=== PATIENT | female | born 1950 | race African-American/Black ===

== ENCOUNTER 2017-01-13 16:14 | Emergency (ER) | payer OTHER ==
[~2017-01-13] VITALS: Ht 154.9 cm; Wt 99.0 kg
[~2017-01-13 16:14] MED LIST: ALBU0.086 INH; ALBU8I INH; ALLO300T2 PO; ATEN-102 PO; BETH25TA PO; EZET10 PO; FOLI1TAB PO; GLIP5TAB8 PO; NIFE90TA PO; OMEP20TA39 PO; PRED20 PO; TORS1TAB12 PO; VITA20003 PO; ZITH250T PO
[2017-01-13 16:16] VITALS: BP 123/69; PULSE 97; RESP 18; TEMP 98.4; O2SAT 97
--- NOTE | 2017-01-13 16:24 | PD ---
HPI Chief Complaint: Edema Time Seen by Provider: 16:23 Travel History International Travel<30 days: No Contact w/Intl Traveler<30days: No Traveled to known affect area: No History of Present Illness HPI 66-year-old female came to the emergency room with history of bilateral pedal edema that has started 3 days ago. Patient wears an and clipped and had to take that off since the ankle was getting swollen and the jewelry was getting tight. Patient has history of heart disease and on torsemide. She says she has been compliant with her medications. No history of chest pain. She has some shortness of breath. Vital signs were otherwise stable. No history of long distance travel. No history of previous DVT or PE. PFSH Past Medical History Narrative Medical List of her past medical, surgical, social and family history is reviewed from the nursing note. Arthritis: Yes (HIP, HANDS & SPINE, KNEES ) Asthma: No Autoimmune Disease: Yes (SARCODOSIS) Anxiety: No Depression: Yes Heart Rhythm Problems: Yes Cancer: Yes (CERVICAL) Cardiovascular Problems: Yes High Cholesterol: No Chemotherapy: No Chest Pain: No Congestive Heart Failure: Yes COPD: No Cerebrovascular Accident: No Diabetes: Yes Diminished Hearing: No Endocrine: Yes Gastrointestinal Disorders: Yes (PANCREATITIS) GERD: Yes Genitourinary: Yes Headaches: Yes Hepatitis: Yes Hypertension: Yes Immune Disorder: No Implanted Vascular Access Dvce: No Kidney Stones: Yes Musculoskeletal: Yes Neurologic: No Psychiatric: Yes Reproductive: Yes (HYSTERERCTOMY 1972) Respiratory: Yes Immunizations Current: Yes Migraines: Yes Radiation Therapy: No Renal Failure: No Sickle Cell Disease: No Sleep Apnea: No Thyroid Disease: No Ulcer: Yes Menopausal: Yes Tubal Ligation: Yes Past Surgical History Abdominal Surgery: Yes (APPY; CHOLECY ) AICD: No Appendectomy: Yes (AGE 16) Arteriovenous Shunt: No Cardiac Surgery: No Cholecystectomy: Yes (1988) Ear Surgery: No Eye Surgery: No Genitourinary Surgery: No Gynecologic Surgery: Yes (HYSTERECTOMY (PARTIAL) ) Hysterectomy: Yes Insulin Pump: No Joint Replacement: Yes (bilateral hips) Oral Surgery: No Pacemaker: No Thoracic Surgery: No Tonsillectomy: Yes (AGE 20) Other Surgery: Yes (BILATERAL BENIGN CYSTS REMOVED BREASTS) Social History Alcohol Use: No (NONE SINCE 2003) Tobacco Use: Yes (1/2 PPD/STARTED AGE 22) Substance Use: No Allergies-Medications (Allergen,Severity, Reaction): Coded Allergies: Sulfa (Sulfonamide Antibiotics) (Unverified Allergy, Severe, SWELLING, 01/13/17) CAN'T BREATHE aspirin (Unverified Allergy, Severe, "FAST HEART BEAT", 01/13/17) RASH, KIDNEY PROBLEMS codeine (Unverified Allergy, Severe, SWELLING, 01/13/17) CAN'T BREATHE penicillin G (Unverified Allergy, Severe, SWELLING, 01/13/17) CAN'T BREATHE Comments List of her allergies reviewed from the nursing note. Reported Meds & Prescriptions Reported Meds & Active Scripts Active Proventil Ud 0.083% (2.5 Mg/3 Ml) (Albuterol Sulfate) 2.5 Mg/3 Ml Inha 2.5 Mg INH Q4 PRN Ventolin Hfa (Albuterol Sulfate) 8 Gm Aero 2 Puff INH Q6 PRN * SHAKE WELL BEFORE USE * Deltasone 20 Mg Tab (Prednisone) 20 Mg Tab 40 Mg PO DAILY Zithromax Z-Richard (Azithromycin) 250 Mg Tab 250 Mg PO DIRECTED 5 Days 500 MG (2 TABLETS) PO ON DAY 1, THEN 250 MG (1 TABLET) PO ON DAYS 2 TO 5. Reported Vitamin D (Cholecalciferol) 2,000 Unit Cap 1 Cap PO DAILY Hm Omeprazole (Omeprazole) 20 Mg Tab 20 Mg PO DAILY Zetia (Ezetimibe) 10 Mg Tab 10 Mg PO DAILY Bethanechol Chloride 25 Mg Tab 25 Mg PO TID Atenolol 50 Mg Tab 50 Mg PO DAILY Allopurinol 300 Mg Tab 150 Mg PO DAILY Nifediac cc (Nifedipine) 90 Mg Tab 90 Mg PO DAILY Glipizide 5 Mg Tab 5 Mg PO BIDAC Torsemide 20 Mg Tab 20 Mg PO BID Folate (Folic Acid) 1 Mg Tab 1 Mg PO DAILY Narrative Medication List of her home medications reviewed from the nursing note. Review of Systems Except as stated in HPI: all other systems reviewed are Neg Respiratory: Positive: Shortness of Breath Physical Exam Narrative GENERAL: Awake, alert, obese, no obvious distress SKIN: Focused skin assessment warm/dry. HEAD: Atraumatic. Normocephalic. EYES: Pupils equal and round. No scleral icterus. No injection or drainage. ENT: No nasal bleeding or discharge. Mucous membranes pink and moist. NECK: Trachea midline. No JVD. CARDIOVASCULAR: Regular rate and rhythm. No murmur appreciated. RESPIRATORY: No accessory muscle use. Clear to auscultation. Breath sounds equal bilaterally. GASTROINTESTINAL: Abdomen soft, non-tender, nondistended. Hepatic and splenic margins not palpable. MUSCULOSKELETAL: No obvious deformities. No clubbing. No cyanosis. Bilateral pedal edema NEUROLOGICAL: Awake and alert. No obvious cranial nerve deficits. Motor grossly within normal limits. Normal speech. PSYCHIATRIC: Appropriate mood and affect; insight and judgment normal. Data Data Last Documented VS Vital Signs Date Time Temp Pulse Resp B/P (MAP) Pulse Ox O2 Delivery O2 Flow Rate FiO2 01/13/17 18:58 111/68 (82) 01/13/17 17:39 82 18 96 01/13/17 17:39 Room Air 01/13/17 16:16 98.4 Orders Orders Electrocardiogram (01/13/17 16:35) Basic Metabolic Panel (Bmp) (01/13/17 16:35) B-Type Natriuretic Peptide (01/13/17 16:35) Complete Blood Count With Diff (01/13/17 16:35) Magnesium (Mg) (01/13/17 16:35) Prothrombin Time / Inr (Pt) (01/13/17 16:35) Troponin I (01/13/17 16:35) Chest, Single Ap (01/13/17 16:35) Ecg Monitoring (01/13/17 16:35) Bilateral Bp Monitoring (01/13/17 16:35) Iv Access Insert/Monitor (01/13/17 16:35) Oximetry (01/13/17 16:35) Oxygen Administration (01/13/17 16:35) Sodium Chloride 0.9% Flush (Ns Flush) (01/13/17 16:45) Drug Screen, Random Urine (01/13/17 16:35) Vascular Access Team Consult/P PRN (01/13/17 16:51) Vascular Poc Ultrasound (01/13/17 ) Ed Discharge Order (01/13/17 18:45) Labs Laboratory Tests Test 01/13/17 17:00 01/13/17 17:15 Urine Opiates Screen POS Urine Barbiturates Screen NEG Urine Amphetamines Screen NEG Urine Benzodiazepines Screen NEG Urine Cocaine Screen NEG Urine Cannabinoids Screen NEG White Blood Count 6.2 TH/MM3 Red Blood Count 3.70 MIL/MM3 Hemoglobin 12.5 GM/DL Hematocrit 37.0 % Mean Corpuscular Volume 100.1 FL Mean Corpuscular Hemoglobin 33.8 PG Mean Corpuscular Hemoglobin Concent 33.8 % Red Cell Distribution Width 15.4 % Platelet Count 216 TH/MM3 Mean Platelet Volume 9.3 FL Neutrophils (%) (Auto) 57.0 % Lymphocytes (%) (Auto) 29.7 % Monocytes (%) (Auto) 10.6 % Eosinophils (%) (Auto) 1.9 % Basophils (%) (Auto) 0.8 % Neutrophils # (Auto) 3.6 TH/MM3 Lymphocytes # (Auto) 1.9 TH/MM3 Monocytes # (Auto) 0.7 TH/MM3 Eosinophils # (Auto) 0.1 TH/MM3 Basophils # (Auto) 0.0 TH/MM3 CBC Comment DIFF FINAL Differential Comment Prothrombin Time 10.0 SEC Prothromb Time International Ratio 0.9 RATIO Blood Urea Nitrogen 43 MG/DL Creatinine 2.00 MG/DL Random Glucose 87 MG/DL Calcium Level 8.7 MG/DL Magnesium Level 2.5 MG/DL Sodium Level 141 MEQ/L Potassium Level 4.0 MEQ/L Chloride Level 105 MEQ/L Carbon Dioxide Level 27.0 MEQ/L Anion Gap 9 MEQ/L Estimat Glomerular Filtration Rate 30 ML/MIN Troponin I LESS THAN 0.02 NG/ML B-Type Natriuretic Peptide 104 PG/ML MDM Medical Decision Making Medical Screen Exam Complete: Yes Emergency Medical Condition: Yes Medical Record Reviewed: Yes Interpretation(s) Twelve-lead EKG was reviewed by me. Normal sinus rhythm, left axis deviation, anterior lateral T wave inversions. Heart rate of 92 bpm. Differential Diagnosis Fluid Overload, dependent edema Narrative Course 5:18 PM awaiting for the blood test results. 6:46 PM blood test results are back. Renal function has worsened from the past. But patient is also on torsemide. I'm comfortable discharging her home at this point. She needs to follow up with her primary care shellacker. Procedures EKG Prior to Arrival: No Diagnosis Primary Impression: Edema Qualified Codes: R60.9 - Edema, unspecified Additional Impression: Renal insufficiency Referrals: Primary Care Physician Additional Instructions: Please ask your primary care to refer you to a kidney doctor/shellacker. You should be on complete salt restricted diet. Return to the ER if the condition worsens or any other new concerns. Otherwise follow-up with your primary care in 1-2 days. Disposition: 01 DISCHARGE HOME Condition: Stable Elmo Culp MD Jan 13, 2017 16:24
[2017-01-13] MEDS ORDERED: SODIUM CHLORIDE 0.9% FLUSH 10 ML FLUSH IVF PRN (16:45)
[2017-01-13 17:39] VITALS: BP 113/62; PULSE 82; RESP 18; O2SAT 96
[2017-01-13 17:40] VITALS: BP_SYST 111; BP_SYST 113; BP_DIAS 62; BP_DIAS 68
--- NOTE | 2017-01-13 17:57 | RADRPT ---
EXAM DATE/TIME: 01/13/2017 17:40 [facility] COMPARISON: No previous studies available for comparison. INDICATIONS : Chest Pain MEDICAL HISTORY : Congestive heart failure. SURGICAL HISTORY : None. ENCOUNTER: Initial ACUITY: 1 day PAIN SCORE: 3/10 LOCATION: Bilateral chest FINDINGS: A single view of the chest demonstrates the lungs to be symmetrically aerated without evidence of mas s, infiltrate or effusion. The cardiomediastinal contours are unremarkable. Osseous structures are intact. CONCLUSION: No acute cardiopulmonary disease demonstrated. Carlos Alberto Cody MD on January 13, 2017 at 17:55 Board Certified Radiologist. This report was verified electronically.
[2017-01-13 18:04] LABS: AUTOMATED NEUTROPHIL # 3.6 TH/MM3 (1.8-7.7); BASOPHIL % 0.8 % (0.0-2.0); EOSINOPHIL # 0.1 TH/MM3 (0-0.4); EOSINOPHIL % 1.9 % (0.0-4.0); HEMO FLAGS DIFF FINAL; LYMPH % 29.7 % (9.0-44.0); LYMPHOCYTE # 1.9 TH/MM3 (1.0-4.8); MEAN CELL VOLUME 100.1 FL (80.0-100.0); MEAN CORPUSCULAR HEMOGLOBIN 33.8 PG (27.0-34.0); MEAN CORPUSCULAR HGB CONC 33.8 % (32.0-36.0); MONO % 10.6 % (0.0-8.0); PLATELET COUNT 216 TH/MM3 (150-450); RED CELL DISTRIBUTION WIDTH 15.4 % (11.6-17.2); WHITE BLOOD COUNT 6.2 TH/MM3 (4.0-11.0)
[2017-01-13 18:07] LABS: INTERNATIONAL NORMALIZED RATIO 0.9 RATIO
[2017-01-13 18:24] LABS: ANION GAP 9 MEQ/L (5-15); BLOOD UREA NITROGEN 43 MG/DL (7-18); CHLORIDE 105 MEQ/L (98-107); GLOMERULAR FILTRATION RATE 30 ML/MIN (>89); MAGNESIUM 2.5 MG/DL (1.5-2.5); SODIUM (NA) 141 MEQ/L (136-145)
[2017-01-13 18:58] VITALS: BP 111/68
--- NOTE | 2017-01-13 21:09 | EKG ---
Date Performed: 01/13/2017 Time Performed: 17:03:05 PTAGE: 66 years EKG: Sinus rhythm NONSPECIFIC T-WAVE ABNORMALITY BORDERLINE ECG PREVIOUS TRACING : 12/30/2013 22.42 No significant change from previous tracing noted. DOCTOR: Julio Tellez Interpretating Date/Time 01/13/2017 21:09:04
== END 2017-01-13 19:27 | disposition home or self-care (01) ==
LOC: NEPE 16:14
DX: R60.9 Edema, unspecified (principal); R07.9 Chest pain, unspecified; D86.9 Sarcoidosis, unspecified; I10 Essential (primary) hypertension; I50.9 Heart failure, unspecified; E11.9 Type 2 diabetes mellitus without complications; K85.90 Acute pancreatitis without necrosis or infection, unspecified; K21.9 Gastro-esophageal reflux disease without esophagitis; Z87.442 Personal history of urinary calculi
CPT/HCPCS: 71010; 80048; 80307; 83735; 83880; 84484; 85025; 85610; 93005; 99285

== ENCOUNTER 2017-04-19 10:15 | Emergency (ER) | payer OTHER ==
[~2017-04-19] VITALS: Ht 154.9 cm; Wt 91.0 kg
[2017-04-19 10:17] VITALS: BP 152/73; PULSE 94; RESP 20; TEMP 97.8; O2SAT 95
[2017-04-19] MEDS ORDERED: FOLI800T PO (11:03)
[2017-04-19] MEDS ORDERED: ALLO300T2 PO (11:03)
[2017-04-19] MEDS ORDERED: BIOTCAP PO (11:03)
[2017-04-19] MEDS ORDERED: SODI650T PO (11:03)
[2017-04-19] MEDS ORDERED: POTA10CA PO (11:03)
[2017-04-19] MEDS ORDERED: BUME2TAB PO (11:03)
[2017-04-19] MEDS ORDERED: OMEP20TA93 PO (11:03)
[2017-04-19] MEDS ORDERED: GLIP5TAB8 PO (11:03)
[2017-04-19] MEDS ORDERED: NIFE1TAB PO (11:03)
[2017-04-19] MEDS ORDERED: BETH25TA2 PO (11:03)
[2017-04-19] MEDS ORDERED: LOSA25TA PO (11:03)
[2017-04-19] MEDS ORDERED: ATEN50TA PO (11:03)
[2017-04-19] MEDS ORDERED: VITA1000 PO (11:03)
[2017-04-19] MEDS ORDERED: DULO1CAP2 PO (11:03)
[2017-04-19] MEDS ORDERED: GABA300C5 PO (11:03)
--- NOTE | 2017-04-19 11:32 | PD ---
HPI Chief Complaint: Abnormal Results Time Seen by Provider: 11:11 Travel History International Travel<30 days: No Contact w/Intl Traveler<30days: No Traveled to known affect area: No History of Present Illness HPI 66-year-old female patient with history of diabetes, hypertension, chronic kidney disease being followed by Dr. Gomez, had routine blood work done a few days ago and they had called her today stating that her potassium was elevated and that she needs to be evaluated in the ER. Patient states that she has been having several days of feeling sluggish, headaches, and nausea. She denies any vomiting, fevers, chest pains, shortness of breath, or other symptoms. Modifying Factors: None Associated Signs & Symptoms: Abnormal potassium on lab work Risk Factors: Chronic kidney disease PFSH Past Medical History Arthritis: Yes (HIP, HANDS & SPINE, KNEES ) Asthma: No Autoimmune Disease: Yes (SARCODOSIS) Anxiety: No Depression: Yes Heart Rhythm Problems: Yes Cancer: Yes (CERVICAL) Cardiovascular Problems: Yes High Cholesterol: No Chemotherapy: No Chest Pain: No Congestive Heart Failure: Yes COPD: No Cerebrovascular Accident: No Diabetes: Yes Patient Takes Glucophage: No Diminished Hearing: No Endocrine: Yes Gastrointestinal Disorders: Yes (PANCREATITIS) GERD: Yes Genitourinary: Yes Headaches: Yes Hepatitis: Yes Hypertension: Yes Immune Disorder: No Implanted Vascular Access Dvce: No Kidney Stones: Yes Musculoskeletal: Yes Neurologic: No Psychiatric: Yes Reproductive: Yes (HYSTERERCTOMY 1972) Respiratory: Yes Immunizations Current: Yes Migraines: Yes Radiation Therapy: No Renal Failure: No Sickle Cell Disease: No Sleep Apnea: No Thyroid Disease: No Ulcer: Yes Tetanus Vaccination: > 5 Years ?: Not Menopausal: Yes Tubal Ligation: Yes Past Surgical History Abdominal Surgery: Yes (APPY; CHOLECY ) AICD: No Appendectomy: Yes (AGE 16) Arteriovenous Shunt: No Cardiac Surgery: No Cholecystectomy: Yes (1988) Ear Surgery: No Eye Surgery: No Genitourinary Surgery: No Gynecologic Surgery: Yes (HYSTERECTOMY (PARTIAL) ) Hysterectomy: Yes Insulin Pump: No Joint Replacement: Yes (bilateral hips) Oral Surgery: No Pacemaker: No Thoracic Surgery: No Tonsillectomy: Yes (AGE 20) Other Surgery: Yes (BILATERAL BENIGN CYSTS REMOVED BREASTS) Social History Alcohol Use: No (NONE SINCE 2003) Tobacco Use: Yes (1/2 PPD/STARTED AGE 22) Substance Use: No Allergies-Medications (Allergen,Severity, Reaction): Coded Allergies: Sulfa (Sulfonamide Antibiotics) (Unverified Allergy, Severe, SWELLING, 04/19) CAN'T BREATHE aspirin (Unverified Allergy, Severe, "FAST HEART BEAT", 04/19/17) RASH, KIDNEY PROBLEMS codeine (Unverified Allergy, Severe, SWELLING, 04/19/17) CAN'T BREATHE penicillin G (Unverified Allergy, Severe, SWELLING, 04/19/17) CAN'T BREATHE Reported Meds & Prescriptions Reported Meds & Active Scripts Active Reported Nifedipine ER 24 HR (Nifedipine) 90 Mg Tab 90 Mg PO DAILY Losartan (Losartan Potassium) 25 Mg Tab 25 Mg PO DAILY Sodium Bicarbonate 650 Mg Tab 650 Mg PO BIDPC Biotin 5 Mg Cap 5 Mg PO Bumetanide 2 Mg Tab 2 Mg PO BID Bethanechol 25 Mg Tab 25 Mg PO Q8HR Atenolol 50 Mg Tab 50 Mg PO DAILY Potassium Chloride ER (Potassium Chloride) 10 Meq Cap 10 Meq PO BID Allopurinol 300 Mg Tab 300 Mg PO DAILY Duloxetine DR (Duloxetine HCl) 30 Mg Capdr 30 Mg PO DAILY Omeprazole 20 Mg Tab 20 Mg PO DAILY Folic Acid 0.8 Mg Tab 1,000 Mcg PO DAILY Glipizide 5 Mg Tab 5 Mg PO BIDAC Take 30 minutes before a meal Gabapentin 300 Mg Cap 300 Mg PO TID Vitamin D-1000 (Cholecalciferol) 1,000 Unit Tab 2,000 Units PO DAILY Review of Systems Except as stated in HPI: all other systems reviewed are Neg Physical Exam Narrative GENERAL: Well-developed elderly -[place] female patient currently in no acute distress. Awake and oriented 3. SKIN: Focused skin assessment warm/dry. HEAD: Atraumatic. Normocephalic. EYES: Pupils equal and round. No scleral icterus. No injection or drainage. ENT: No nasal bleeding or discharge. Mucous membranes pink and moist. NECK: Trachea midline. No JVD. CARDIOVASCULAR: Regular rate and rhythm. No murmur appreciated. RESPIRATORY: No accessory muscle use. Clear to auscultation. Breath sounds equal bilaterally. GASTROINTESTINAL: Abdomen soft, non-tender, nondistended. Hepatic and splenic margins not palpable. MUSCULOSKELETAL: No obvious deformities. No clubbing. No cyanosis. No edema. NEUROLOGICAL: Awake and alert. No obvious cranial nerve deficits. Motor grossly within normal limits. Normal speech. PSYCHIATRIC: Appropriate mood and affect; insight and judgment normal. Data Data Last Documented VS Vital Signs Date Time Temp Pulse Resp B/P (MAP) Pulse Ox O2 Delivery O2 Flow Rate FiO2 04/19/17 10:17 97.8 94 20 152/73 (99) 95 Orders Orders Electrocardiogram (04/19/17 10:48) Complete Blood Count With Diff (04/19/17 10:48) Basic Metabolic Panel (Bmp) (04/19/17 10:48) Magnesium (Mg) (04/19/17 10:48) Ed Discharge Order (04/19/17 12:39) Labs Laboratory Tests Test 04/19/17 11:30 White Blood Count 6.9 TH/MM3 Red Blood Count 3.97 MIL/MM3 Hemoglobin 13.5 GM/DL Hematocrit 39.2 % Mean Corpuscular Volume 98.9 FL Mean Corpuscular Hemoglobin 34.1 PG Mean Corpuscular Hemoglobin Concent 34.5 % Red Cell Distribution Width 15.5 % Platelet Count 220 TH/MM3 Mean Platelet Volume 8.9 FL Neutrophils (%) (Auto) 60.8 % Lymphocytes (%) (Auto) 28.3 % Monocytes (%) (Auto) 8.3 % Eosinophils (%) (Auto) 1.9 % Basophils (%) (Auto) 0.7 % Neutrophils # (Auto) 4.2 TH/MM3 Lymphocytes # (Auto) 1.9 TH/MM3 Monocytes # (Auto) 0.6 TH/MM3 Eosinophils # (Auto) 0.1 TH/MM3 Basophils # (Auto) 0.0 TH/MM3 CBC Comment DIFF FINAL Differential Comment Blood Urea Nitrogen 36 MG/DL Creatinine 1.46 MG/DL Random Glucose 83 MG/DL Calcium Level 8.8 MG/DL Magnesium Level 2.0 MG/DL Sodium Level 139 MEQ/L Potassium Level 4.5 MEQ/L Chloride Level 106 MEQ/L Carbon Dioxide Level 26.0 MEQ/L Anion Gap 7 MEQ/L Estimat Glomerular Filtration Rate 43 ML/MIN MDM Medical Decision Making Medical Screen Exam Complete: Yes Emergency Medical Condition: Yes Medical Record Reviewed: Yes Interpretation(s) EKG shows NSR, no ST elevation or depression, and no arrhythmias. No significant T-wave inversions. Laboratory Tests Test 04/19/17 11:30 Red Blood Count 3.97 MIL/MM3 (4.00-5.30) Mean Corpuscular Hemoglobin 34.1 PG (27.0-34.0) Monocytes (%) (Auto) 8.3 % (0.0-8.0) Blood Urea Nitrogen 36 MG/DL (7-18) Creatinine 1.46 MG/DL (0.50-1.00) Estimat Glomerular Filtration Rate 43 ML/MIN (>89) Differential Diagnosis Abnormal potassium: Hemolyzed cyst versus chronic kidney disease versus metabolic issues Narrative Course Lab work shows a normal potassium in the ER. At this point, vital signs are stable. There are no signs of dysrhythmias. My plan would be to release her with follow-up to renal doctor. Return for any new issues as needed. The plan has been discussed with her and she states understanding. Diagnosis Primary Impression: Abnormal laboratory test Disposition: 01 DISCHARGE HOME Condition: Stable Kurtis Lynn MD Apr 19, 2017 11:32
[2017-04-19 11:46] LABS: AUTOMATED NEUTROPHIL # 4.2 TH/MM3 (1.8-7.7); BASOPHIL % 0.7 % (0.0-2.0); EOSINOPHIL # 0.1 TH/MM3 (0-0.4); EOSINOPHIL % 1.9 % (0.0-4.0); HEMATOCRIT 39.2 % (35.0-46.0); HEMOGLOBIN 13.5 GM/DL (11.6-15.3); LYMPH % 28.3 % (9.0-44.0); LYMPHOCYTE # 1.9 TH/MM3 (1.0-4.8); MEAN CELL VOLUME 98.9 FL (80.0-100.0); MEAN CORPUSCULAR HEMOGLOBIN 34.1 PG (27.0-34.0); MEAN CORPUSCULAR HGB CONC 34.5 % (32.0-36.0); MEAN PLATELET VOLUME 8.9 FL (7.0-11.0); MONO % 8.3 % (0.0-8.0); MONOCYTE # 0.6 TH/MM3 (0-0.9); NEUT % 60.8 % (16.0-70.0); PLATELET COUNT 220 TH/MM3 (150-450); RED BLOOD COUNT 3.97 MIL/MM3 (4.00-5.30); RED CELL DISTRIBUTION WIDTH 15.5 % (11.6-17.2); WHITE BLOOD COUNT 6.9 TH/MM3 (4.0-11.0)
[2017-04-19 12:02] LABS: CALCIUM 8.8 MG/DL (8.5-10.1); CREATININE 1.46 MG/DL (0.50-1.00)
[2017-04-19 12:52] VITALS: BP 131/70; PULSE 79; RESP 17; O2SAT 97
--- NOTE | 2017-04-21 00:33 | EKG ---
Date Performed: 04/19/2017 Time Performed: 11:08:54 PTAGE: 66 years EKG: Sinus rhythm MODERATE VOLTAGE CRITERIA FOR LVH, CONSIDER NORMAL VARIANT NONSPECIFIC T-WAVE ABNORMALITY BORDERLINE ECG PREVIOUS TRACING : 01/13/2017 17.03 Compared to prior tracing, now with criteria for LVH DOCTOR: Dre Jauregui Interpretating Date/Time 04/21/2017 00:31:59
== END 2017-04-19 13:06 | disposition home or self-care (01) ==
LOC: NEPE 10:15
DX: E87.6 Hypokalemia (principal); I13.0 Hypertensive heart and chronic kidney disease with heart failure and stage 1 through stage 4 chronic kidney disease, or unspecified chronic kidney disease; I50.9 Heart failure, unspecified; N18.9 Chronic kidney disease, unspecified; E11.22 Type 2 diabetes mellitus with diabetic chronic kidney disease; R94.31 Abnormal electrocardiogram [ECG] [EKG]; F32.9 Major depressive disorder, single episode, unspecified; K21.9 Gastro-esophageal reflux disease without esophagitis; F17.200 Nicotine dependence, unspecified, uncomplicated
CPT/HCPCS: 80048; 83735; 85025; 93005; 99284

== ENCOUNTER 2017-05-12 13:20 | Emergency (ER) | payer OTHER ==
[~2017-05-12] VITALS: Ht 154.9 cm; Wt 98.0 kg
[~2017-05-12 13:20] MED LIST changes: -ALBU0.086 INH; -ALBU8I INH; -ATEN-102 PO; +ATEN50TA PO; -BETH25TA PO; +BETH25TA2 PO; +BIOTCAP PO; +BUME2TAB PO; +DULO1CAP2 PO; -EZET10 PO; -FOLI1TAB PO; +FOLI800T PO; +GABA300C5 PO; +LOSA25TA PO; +NIFE1TAB PO; -NIFE90TA PO; -OMEP20TA39 PO; +OMEP20TA93 PO; +POTA10CA PO; -PRED20 PO; +SODI650T PO; -TORS1TAB12 PO; +VITA1000 PO; -VITA20003 PO; -ZITH250T PO
[2017-05-12 13:40] VITALS: BP 126/67; PULSE 86; RESP 18; TEMP 98.6; O2SAT 97
--- NOTE | 2017-05-12 13:59 | PD ---
HPI Chief Complaint: Hip Injury Time Seen by Provider: 13:58 Travel History International Travel<30 days: No Contact w/Intl Traveler<30days: No Traveled to known affect area: No History of Present Illness HPI 67-year-old female came to the emergency room with history of a fall 2 days ago. Patient says since then her right hip has been hurting. She is able to walk but it hurts and the pain is progressively getting worse. She has pain pills at home and she has taken them but does not seem to help. Finally the patient decided to come to the emergency room. She has had hip replacement surgery in the past. She's never had issues with this happened in the past. Patient says the fall was due to tripping on her dog. Vital signs are stable. [facility] Past Medical History Narrative Medical List of her past medical, surgical, social and family history is reviewed from the nursing note. Arthritis: Yes (HIP, HANDS & SPINE, KNEES ) Asthma: No Autoimmune Disease: Yes (SARCODOSIS) Anxiety: No Depression: Yes Heart Rhythm Problems: Yes Cancer: Yes (CERVICAL) Cardiovascular Problems: Yes High Cholesterol: No Chemotherapy: No Chest Pain: No Congestive Heart Failure: Yes COPD: No Cerebrovascular Accident: No Diabetes: Yes (TYPE 2) Diminished Hearing: No Endocrine: Yes Gastrointestinal Disorders: Yes (PANCREATITIS) GERD: Yes Genitourinary: Yes Headaches: Yes Hepatitis: Yes Hypertension: Yes Immune Disorder: No Implanted Vascular Access Dvce: No Kidney Stones: Yes Musculoskeletal: Yes Neurologic: No Psychiatric: Yes Reproductive: Yes (HYSTERERCTOMY 1972) Respiratory: Yes Immunizations Current: Yes Migraines: Yes Radiation Therapy: No Renal Failure: No Sickle Cell Disease: No Sleep Apnea: No Thyroid Disease: No Ulcer: Yes ?: Not Menopausal: Yes Tubal Ligation: Yes Past Surgical History Abdominal Surgery: Yes (APPY; CHOLECY ) AICD: No Appendectomy: Yes (AGE 16) Arteriovenous Shunt: No Cardiac Surgery: No Cholecystectomy: Yes (1988) Ear Surgery: No Eye Surgery: No Genitourinary Surgery: No Gynecologic Surgery: Yes (HYSTERECTOMY (PARTIAL) ) Hysterectomy: Yes Insulin Pump: No Joint Replacement: Yes (bilateral hips) Oral Surgery: No Pacemaker: No Thoracic Surgery: No Tonsillectomy: Yes (AGE 20) Other Surgery: Yes (BILATERAL BENIGN CYSTS REMOVED BREASTS) Social History Alcohol Use: No (NONE SINCE 2003) Tobacco Use: Yes (1/2 PPD/STARTED AGE 22) Substance Use: No Allergies-Medications (Allergen,Severity, Reaction): Coded Allergies: Sulfa (Sulfonamide Antibiotics) (Unverified Allergy, Severe, SWELLING, 05/12) CAN'T BREATHE aspirin (Unverified Allergy, Severe, "FAST HEART BEAT", 05/12/17) RASH, KIDNEY PROBLEMS codeine (Unverified Allergy, Severe, SWELLING, 05/12/17) CAN'T BREATHE penicillin G (Unverified Allergy, Severe, SWELLING, 05/12/17) CAN'T BREATHE Comments List of her allergies reviewed from the nursing note. Reported Meds & Prescriptions Reported Meds & Active Scripts Active Flexeril (Cyclobenzaprine HCl) 5 Mg Tab 5 Mg PO TID Reported Nifedipine ER 24 HR (Nifedipine) 90 Mg Tab 90 Mg PO DAILY Losartan (Losartan Potassium) 25 Mg Tab 25 Mg PO DAILY Sodium Bicarbonate 650 Mg Tab 650 Mg PO BIDPC Biotin 5 Mg Cap 5 Mg PO Bumetanide 2 Mg Tab 2 Mg PO BID Bethanechol 25 Mg Tab 25 Mg PO Q8HR Atenolol 50 Mg Tab 50 Mg PO DAILY Potassium Chloride ER (Potassium Chloride) 10 Meq Cap 10 Meq PO BID Allopurinol 300 Mg Tab 300 Mg PO DAILY Duloxetine DR (Duloxetine HCl) 30 Mg Capdr 30 Mg PO DAILY Omeprazole 20 Mg Tab 20 Mg PO DAILY Folic Acid 0.8 Mg Tab 1,000 Mcg PO DAILY Glipizide 5 Mg Tab 5 Mg PO BIDAC Take 30 minutes before a meal Gabapentin 300 Mg Cap 300 Mg PO TID Vitamin D-1000 (Cholecalciferol) 1,000 Unit Tab 2,000 Units PO DAILY Narrative Medication List of her home medications reviewed from the nursing note. Review of Systems Except as stated in HPI: all other systems reviewed are Neg Musculoskeletal: Positive: Pain Physical Exam Narrative GENERAL: Awake, alert, moderate distress, obese SKIN: Focused skin assessment warm/dry. HEAD: Atraumatic. Normocephalic. EYES: Pupils equal and round. No scleral icterus. No injection or drainage. ENT: No nasal bleeding or discharge. Mucous membranes pink and moist. NECK: Trachea midline. No JVD. CARDIOVASCULAR: Regular rate and rhythm. No murmur appreciated. RESPIRATORY: No accessory muscle use. Clear to auscultation. Breath sounds equal bilaterally. GASTROINTESTINAL: Abdomen soft, non-tender, nondistended. Hepatic and splenic margins not palpable. MUSCULOSKELETAL: No obvious deformities. No clubbing. No cyanosis. No edema. Slight antalgic gait on the right side NEUROLOGICAL: Awake and alert. No obvious cranial nerve deficits. Motor grossly within normal limits. Normal speech. PSYCHIATRIC: Appropriate mood and affect; insight and judgment normal. Data Data Last Documented VS Vital Signs Date Time Temp Pulse Resp B/P (MAP) Pulse Ox O2 Delivery O2 Flow Rate FiO2 05/12/17 15:29 78 18 130/72 (91) 98 05/12/17 13:40 98.6 Orders Orders Hip, Uni(Ap&Lat) W Ap Pelvis (05/12/17 ) Femur (Ap & Lat/2vws) (05/12/17 ) Spine, Lumbar Comp W/Obliq (05/12/17 ) Ed Discharge Order (05/12/17 15:21) MDM Medical Decision Making Medical Screen Exam Complete: Yes Emergency Medical Condition: Yes Medical Record Reviewed: Yes Differential Diagnosis Hip fracture, hip strain, pelvic fracture Narrative Course 2:47 PM awaiting for the x-rays to be done and resulted. Patient has already taken pain medication at home before coming in and hence I did not give her anything for pain here. 3:21 PM all the x-rays came back reported no acute injuries. I will discharge her home. She'll go home with prescription for muscle relaxants. Procedures EKG Prior to Arrival: No Diagnosis Primary Impression: Fall Qualified Codes: W19.XXXA - Unspecified fall, initial encounter Additional Impression: Hip strain Qualified Codes: S76.011A - Strain of muscle, fascia and tendon of right hip, initial encounter Referrals: Primary Care Physician Additional Instructions: Take the medication as per the prescription direction. Follow-up with your primary care. Med/Other Pt SpecificInfo: Prescription(s) given Scripts Cyclobenzaprine (Flexeril) 5 Mg Tab 5 MG PO TID for Muscle Spasm, #15 TAB 0 Refills Prov: Elmo Culp MD 05/12/17 Disposition: 01 DISCHARGE HOME Condition: Stable Elmo Culp MD May 12, 2017 13:59
--- NOTE | 2017-05-12 14:42 | RADRPT ---
EXAM DATE/TIME: 05/12/2017 14:18 [facility] COMPARISON: No previous studies available for comparison. INDICATIONS : Patient fell 3 days ago now pain in lower back. MEDICAL HISTORY : Congestive heart failure. SURGICAL HISTORY : None. ENCOUNTER: Initial ACUITY: 3 days PAIN SCORE: 8/10 LOCATION: Bilateral lower back FINDINGS: Bilateral total hip arthroplasties are noted. There no compression deformities. Mild disc space multi level osteophyte formation present. Moderate facet hypertrophic changes are noted. Mild anterior oste ophyte formation. CONCLUSION: Degenerative changes are noted. No obvious fractures. London Mason MD on May 12, 2017 at 14:39 Board Certified Radiologist. This report was verified electronically.
--- NOTE | 2017-05-12 14:47 | RADRPT ---
EXAM DATE/TIME: 05/12/2017 14:19 [facility] COMPARISON: HIP RIGHT (AP&LAT 2/3VWS) W AP PELVIS, May 12, 2017, 14:19. INDICATIONS : Patient fell 3 days ago, pain in right leg and back. MEDICAL HISTORY : Congestive heart failure. SURGICAL HISTORY : bilateral total hips ENCOUNTER: Initial ACUITY: 3 days PAIN SCORE: 8/10 LOCATION: Right leg FINDINGS: Right total hip arthroplasty. Femoral and acetabular components appear well-seated. No acute fracture s are seen. There is some heterotopic bone adjacent to the trochanters. CONCLUSION: No acute disease. London Mason MD on May 12, 2017 at 14:44 Board Certified Radiologist. This report was verified electronically.
--- NOTE | 2017-05-12 15:16 | RADRPT ---
EXAM DATE/TIME: 05/12/2017 14:19 [facility] COMPARISON: FEMUR RIGHT (AP & LAT/2VWS), May 12, 2017, 14:19. INDICATIONS : Patient fell 3 days ago, pain in back and right hip. MEDICAL HISTORY : Congestive heart failure. SURGICAL HISTORY : bilateral total hip ENCOUNTER: Initial ACUITY: 3 days PAIN SCORE: 7/10 LOCATION: Right leg FINDINGS: Right total hip arthroplasty. Some heterotopic bone about the trochanters is seen. No obvious acute f ractures are present. Left total hip arthroplasty with heterotopic bone adjacent to the greater troch anter. CONCLUSION: No acute disease. London Mason MD on May 12, 2017 at 15:13 Board Certified Radiologist. This report was verified electronically.
[2017-05-12] MEDS ORDERED: CYCL5TAB PO (15:23)
[2017-05-12 15:29] VITALS: BP 130/72
== END 2017-05-12 15:30 | disposition home or self-care (01) ==
LOC: NEPD 13:20
DX: S76.011A Strain of muscle, fascia and tendon of right hip, initial encounter (principal); F17.200 Nicotine dependence, unspecified, uncomplicated; I11.0 Hypertensive heart disease with heart failure; I50.9 Heart failure, unspecified; W01.0XXA Fall on same level from slipping, tripping and stumbling without subsequent striking against object, initial encounter
CPT/HCPCS: 72110; 73502; 73552; 99283

== ENCOUNTER 2017-06-08 00:09 | Emergency (ER) | payer OTHER ==
[~2017-06-08] VITALS: Ht 154.9 cm; Wt 98.5 kg
[~2017-06-08 00:09] MED LIST changes: +CYCL5TAB PO
[2017-06-08 00:32] VITALS: BP 167/76; PULSE 89; RESP 16; TEMP 98.8; O2SAT 98
--- NOTE | 2017-06-08 01:14 | PD ---
HPI Chief Complaint: Back/ Neck Pain or Injury Time Seen by Provider: 01:06 Travel History International Travel<30 days: No Contact w/Intl Traveler<30days: No Traveled to known affect area: No History of Present Illness HPI 67-year-old female complains of right-sided neck pain. Patient states that the pain started 2 days ago. Patient states that she woke up with the pain. Patient states that her neck pain is muscular spasm type of pain localized the right-sided neck. Patient states that she has right-sided with the pain. Patient denies any visual change. Patient denies any chest pain or shortness of breath. Patient denies abdominal pain. Patient denies any focal weakness or numbness of extremity. Patient denies any fever chills. Patient denies any recent injury. On a scale of 1-10 the pain is an 8. PFSH Past Medical History Arthritis: Yes (HIP, HANDS & SPINE, KNEES ) Asthma: No Autoimmune Disease: Yes (SARCODOSIS) Anxiety: No Depression: Yes Heart Rhythm Problems: Yes Cancer: Yes (CERVICAL) Cardiovascular Problems: Yes (HTN) High Cholesterol: No Chemotherapy: No Chest Pain: No Congestive Heart Failure: Yes COPD: No Cerebrovascular Accident: No Diabetes: Yes Patient Takes Glucophage: Yes (Glipizide) Diminished Hearing: No Endocrine: Yes Gastrointestinal Disorders: Yes (PANCREATITIS) GERD: Yes Genitourinary: Yes Headaches: Yes Hepatitis: Yes Hypertension: Yes Immune Disorder: No Implanted Vascular Access Dvce: No Kidney Stones: Yes Musculoskeletal: Yes Neurologic: No Psychiatric: Yes Reproductive: Yes (HYSTERERCTOMY 1972) Respiratory: Yes Immunizations Current: Yes Migraines: Yes Radiation Therapy: No Renal Failure: No Sickle Cell Disease: No Sleep Apnea: No Thyroid Disease: No Ulcer: Yes Tetanus Vaccination: > 5 Years Influenza Vaccination: Yes Menopausal: Yes Tubal Ligation: Yes Past Surgical History Abdominal Surgery: Yes (APPY; CHOLECY ) AICD: No Appendectomy: Yes (AGE 16) Arteriovenous Shunt: No Cardiac Surgery: No Cholecystectomy: Yes (1988) Ear Surgery: No Eye Surgery: No Genitourinary Surgery: No Gynecologic Surgery: Yes (HYSTERECTOMY (PARTIAL) ) Hysterectomy: Yes Insulin Pump: No Joint Replacement: Yes (bilateral hips) Neurologic Surgery: No Oral Surgery: No Pacemaker: No Thoracic Surgery: No Tonsillectomy: Yes (AGE 20) Other Surgery: Yes (BILATERAL BENIGN CYSTS REMOVED BREASTS) Social History Alcohol Use: No (NONE SINCE 2003) Tobacco Use: Yes (1/2 PPD/STARTED AGE 22) Substance Use: No Allergies-Medications (Allergen,Severity, Reaction): Coded Allergies: Sulfa (Sulfonamide Antibiotics) (Unverified Allergy, Severe, SWELLING, 05/12) CAN'T BREATHE aspirin (Unverified Allergy, Severe, "FAST HEART BEAT", 05/12/17) RASH, KIDNEY PROBLEMS codeine (Unverified Allergy, Severe, SWELLING, 05/12/17) CAN'T BREATHE penicillin G (Unverified Allergy, Severe, SWELLING, 05/12/17) CAN'T BREATHE Reported Meds & Prescriptions Reported Meds & Active Scripts Active Flexeril (Cyclobenzaprine HCl) 5 Mg Tab 5 Mg PO TID Reported Nifedipine ER 24 HR (Nifedipine) 90 Mg Tab 90 Mg PO DAILY Losartan (Losartan Potassium) 25 Mg Tab 25 Mg PO DAILY Sodium Bicarbonate 650 Mg Tab 650 Mg PO BIDPC Biotin 5 Mg Cap 5 Mg PO Bumetanide 2 Mg Tab 2 Mg PO BID Bethanechol 25 Mg Tab 25 Mg PO Q8HR Atenolol 50 Mg Tab 50 Mg PO DAILY Potassium Chloride ER (Potassium Chloride) 10 Meq Cap 10 Meq PO BID Allopurinol 300 Mg Tab 300 Mg PO DAILY Duloxetine DR (Duloxetine HCl) 30 Mg Capdr 30 Mg PO DAILY Omeprazole 20 Mg Tab 20 Mg PO DAILY Folic Acid 0.8 Mg Tab 1,000 Mcg PO DAILY Glipizide 5 Mg Tab 5 Mg PO BIDAC Take 30 minutes before a meal Gabapentin 300 Mg Cap 300 Mg PO TID Vitamin D-1000 (Cholecalciferol) 1,000 Unit Tab 2,000 Units PO DAILY Review of Systems General / Constitutional: No: Fever Eyes: No: Visual changes HENT: Positive: Neck Pain, No: Headaches Cardiovascular: No: Chest Pain or Discomfort Respiratory: No: Shortness of Breath Gastrointestinal: No: Abdominal Pain Genitourinary: No: Dysuria Musculoskeletal: No: Pain Skin: No Rash Neurologic: No: Weakness Psychiatric: No: Depression Endocrine: No: Polydipsia Hematologic/Lymphatic: No: Easy Bruising Physical Exam Narrative GENERAL: Well-nourished, well-developed patient. SKIN: Focused skin assessment warm/dry. HEAD: Normocephalic. EYES: No scleral icterus. No injection or drainage. NECK: Supple, trachea midline. No JVD or lymphadenopathy. Patient has moderate tenderness on palpation right paraspinal area cervical spine. No midline tenderness. CARDIOVASCULAR: Regular rate and rhythm without murmurs, gallops, or rubs. RESPIRATORY: Breath sounds equal bilaterally. No accessory muscle use. GASTROINTESTINAL: Abdomen soft, non-tender, nondistended. MUSCULOSKELETAL: No cyanosis, or edema. BACK: Nontender without obvious deformity. No CVA tenderness. Neurologic exam normal. Data Data Last Documented VS Vital Signs Date Time Temp Pulse Resp B/P (MAP) Pulse Ox O2 Delivery O2 Flow Rate FiO2 06/08/17 00:32 98.8 89 16 167/76 (106) 98 Orders Orders Spine, Cervical - Ltd (Ap&Lat) (06/08/17 01:10) [facility] Medical Decision Making Medical Screen Exam Complete: Yes Emergency Medical Condition: Yes Interpretation(s) Last Impressions Cervical Spine X-Ray 06/08/17 0110 Signed Impressions: Service Date/Time: Thursday, June 08, 2017 01:25 - CONCLUSION: Unremarkable limited examination of the cervical spine. Alfredito Hamilton MD Differential Diagnosis Differential diagnosis including muscular spasm, fracture, HNP. Narrative Course 67-year-old female with right-sided neck pain. Nontraumatic. Diagnosis Primary Impression: Acute torticollis Patient Instructions: General Instructions Additional Instructions: Flexeril as needed for pain. Moist heat to the neck. Follow-up with personal physician. Med/Other Pt SpecificInfo: Prescription(s) given Scripts Cyclobenzaprine (Flexeril) 10 Mg Tab 10 MG PO TID for Muscle Spasm, #60 TAB 0 Refills Prov: Mina Hernández MD 06/08/17 Disposition: DISCHARGE HOME Condition: Stable Mina Hernández MD Jun 08, 2017 01:14
--- NOTE | 2017-06-08 01:48 | RADRPT ---
EXAM DATE/TIME: 06/08/2017 01:25 [facility] COMPARISON: No previous studies available for comparison. INDICATIONS : Neck pain. MEDICAL HISTORY : Diabetes mellitus type II. Hypertension SURGICAL HISTORY : None. ENCOUNTER: Initial ACUITY: 2 days PAIN SCORE: 10/10 LOCATION: Right C-spine. FINDINGS: Two projection examination was performed. There is normal alignment and curvature of the vertebral b odies down to the level of C7. No evidence of fracture or subluxation. Vertebral body height is gerald ntained. The disc spaces are maintained. The prevertebral soft tissues are of normal thickness. Th e atlanto-axial articulation is intact. CONCLUSION: Unremarkable limited examination of the cervical spine. Alfredito Hamilton MD on June 08, 2017 at 1:46 Board Certified Radiologist. This report was verified electronically.
[2017-06-08] MEDS ORDERED: CYCL10TA PO (02:02)
[2017-06-08] MEDS ORDERED: CYCLOBENZAPRINE HCL 10 MG TAB PO ONE (02:15)
== END 2017-06-08 02:35 | disposition home or self-care (01) ==
LOC: NEPC 00:09
DX: M43.6 Torticollis (principal); D86.9 Sarcoidosis, unspecified; F32.9 Major depressive disorder, single episode, unspecified; I11.0 Hypertensive heart disease with heart failure; I50.9 Heart failure, unspecified; E11.9 Type 2 diabetes mellitus without complications; K21.9 Gastro-esophageal reflux disease without esophagitis; F17.200 Nicotine dependence, unspecified, uncomplicated
CPT/HCPCS: 72040; 99283

== ENCOUNTER 2017-11-26 10:43 | Observation (INO) ==
--- NOTE | 2017-11-26 15:23 | ED ---
HPI General Chief Complaint: Shortness of Breath/Dyspnea Stated Complaint: SOB/doctor sent Time Seen by Provider: 11/26/17 15:08 Source: patient Mode of arrival: ambulatory Limitations: no limitations History of Present Illness 67-year-old female with a history of diabetes mellitus type 2, congestive heart failure, sarcoidosis presents emergency department complaining of shortness of breath and rhinorrhea that started 2 days ago. Patient states she woke up with the shortness of breath. Says the shortness of breath is worse with activity and walking, decreased somewhat with rest. She denies chest pain, back pain, abdominal pain, leg pain. Patient has no prior history of shortness of breath. Says that her primary care physician sent her here to the hospital for a chest x-ray as she has a kidney biopsy with Dr. Gomez for proteinuria. She denies history of asthma, COPD, sleep apnea. She denies history of DVT/PE , leg swelling, recent travel, surgeries, immobilizations. Pt smokes tobacco regularly. Her juvenile detention officer is Dr. Galo. Last echocardiogram was 1 year ago. Last stress test 2-3 years ago [address] normal[address] Dr[address] Kirkland is her PCP. Complaint: shortness of breath Onset (ago): day(s) (2) Context: other (woke up with SOB, worse with activity) Severity: mild Consistency/Duration: constant Relieving factors: nothing Exacerbating factors: nothing Known history of: congestive heart failure and diabetes Associated symptoms: denies other symptoms Treatment prior to arrival: none Related Data Home Medications Medication Instructions Recorded Confirmed allopurinol 300 mg PO DAILY 11/26/17 11/26/17 atenolol 50 mg PO DAILY 11/26/17 11/26/17 bethanechol chloride 25 mg PO TID 11/26/17 11/26/17 bumetanide 2 mg PO DAILY 11/26/17 11/26/17 duloxetine [Cymbalta] 30 mg PO DAILY 11/26/17 11/26/17 folic acid 1 mg PO DAILY 11/26/17 11/26/17 glipizide 5 mg PO BID 11/26/17 11/26/17 hydrocodone-acetaminophen [[place]] 1 tab PO QID 11/26/17 11/26/17 losartan 50 mg PO DAILY 11/26/17 11/26/17 nifedipine 90 mg PO DAILY 11/26/17 11/26/17 omeprazole 20 mg PO DAILY 11/26/17 11/26/17 potassium chloride 10 meq PO BID 11/26/17 11/26/17 sodium bicarbonate 650 mg PO BID 11/26/17 11/26/17 tizanidine 4 mg PO TID 11/26/17 11/26/17 Allergies Allergy/AdvReac Type Severity Reaction Status Date / Time aspirin Allergy Severe "FAST Verified 11/27/17 08:39 HEART BEAT" codeine Allergy Severe Anaphylaxis Verified 11/27/17 08:39 penicillin G Allergy Severe Anaphylaxis Verified 11/27/17 08:39 Sulfa (Sulfonamide Allergy Severe Anaphylaxis Verified 11/27/17 08:39 Antibiotics) Review of Systems ROS: all other systems reviewed are negative PMFSH History History Provided By: Patient and Family Member Medical History Medical History History of hysterectomy (Acute) Hypertension (Acute) Normal cardiac stress test (Acute) CHF (congestive heart failure) (Chronic) Diabetes mellitus (Chronic) Sarcoidosis (Chronic) Surgical History Surgical History H/O breast biopsy (Acute) History of hip replacement (Acute) Hx of cholecystectomy (Acute) Hx of tonsillectomy (Acute) Family History Family History Other Coronary artery disease Social History Social History Substance History: No History of Abuse Second Hand Smoke Exposure: No Smoking Status: Never smoker How Often Do You Have a Drink Containing Alcohol: Never Recent Travel in [facility] within the Last 8 Weeks: No Recent Out of Country Travel within the Last 8 Weeks: No Exam Narrative Exam Narrative: GENERAL: WD, WN in NAD, sitting in tripod position, no accessory muscle use. SKIN: Focused skin assessment warm/dry. HEAD: Atraumatic. Normocephalic. EYES: Pupils equal and round. No scleral icterus. No injection or drainage. ENT: No nasal bleeding or discharge. Mucous membranes pink and moist. NECK: Trachea midline. No JVD. CARDIOVASCULAR: Regular rate and rhythm. No murmur appreciated. RESPIRATORY: No accessory muscle use. Clear to auscultation. Breath sounds equal bilaterally but somewhat diminished. GASTROINTESTINAL: Abdomen soft, non-tender, nondistended. Hepatic and splenic margins not palpable. MUSCULOSKELETAL: No obvious deformities. No clubbing. No cyanosis. No edema. No tenderness palpation of the calves NEUROLOGICAL: Awake and alert. No obvious cranial nerve deficits. Motor grossly within normal limits. Normal speech. PSYCHIATRIC: Appropriate mood and affect; insight and judgment normal. Course Initial Documented Vital Signs Temperature 97.7 F 11/26/17 10:55 Pulse Rate 96 H 11/26/17 10:55 Respiratory Rate 24 11/26/17 10:55 Blood Pressure 130/86 11/26/17 10:55 Pulse Oximetry 97 11/26/17 10:55 Last Documented Vital Signs Temperature 98.1 F 11/27/17 08:24 Pulse Rate 98 H 11/27/17 08:24 Respiratory Rate 20 11/27/17 08:24 Blood Pressure 121/69 11/27/17 08:24 Pulse Oximetry 100 11/27/17 08:24 Clinical Decision Support HEART Score Questions History: Moderately suspicious Age: 65 years+ Risk Factors: 3 or more Risk Factors or Hx of Atherosclerotic Disease Medical Decision Making MDM Narrative Medical decision making narrative: 67y female presents to the ED for SOB and rhinorrhea. States she did not take her medication today but has been taking regularly otherwise. Vital signs stable, although mildly tachycardic. Physical exam findings show patient in tripod position in bed with mild respiratory distress upon reexamination. Duonebs administered with some improvement in symptoms. Labs are notable for troponin 0.03, BNP 842. CXR without cardiac failure. Lasix 20mg IV administered with caution. BUN/Cr slightly elevated from visit 22017. Because of the new increase in BNP, shortness of breath, and usual compliance with medications, will admit for acute CHF exacerbation. I spoke with Dr. Madrigal who agreed to the admission. Medical Screen Exam Complete: Yes Emergency Medical Condition: Yes Differential Diagnosis Differential Diagnosis: Acute bronchitis, upper respiratory infection, rhinorrhea, anginal equivalent, ACS, pulmonary embolism Medical Records Medical records reviewed: Yes I reviewed the patient's medical records. Lab Data Result diagrams: 11/27/17 05:02 11/27/17 05:02 Lab Results 11/26/17 11/26/17 11/26/17 Range/Units 16:55 16:55 16:55 WBC 5.2 (4.0-11.0) th/mm3 RBC 3.84 L (4.00-5.30) mil/mm3 Hgb 13.0 (11.6-15.3) gm/dL Hct 39.8 (35.0-46.0) % MCV 103.6 H (80.0-100.0) fL MCH 33.8 (27.0-34.0) pg MCHC 32.6 (32.0-36.0) % RDW 16.5 (11.6-17.2) % Plt Count 189 (150-450) th/mm3 MPV 9.8 (7.0-11.0) fL Neut % (Auto) 37.5 (16.0-70.0) % Lymph % (Auto) 46.4 H (9.0-44.0) % Hitchcock % (Auto) 13.0 H (0.0-8.0) % Eos % (Auto) 2.3 (0.0-4.0) % Baso % (Auto) 0.8 (0.0-2.0) % Neut # (Auto) 2.0 (1.8-7.7) th/mm3 Lymph # (Auto) 2.4 (1.0-4.8) th/mm3 Hitchcock # (Auto) 0.7 (0.0-0.9) th/mm3 Eos # (Auto) 0.1 (0.0-0.4) th/mm3 Baso # (Auto) 0.0 (0.0-0.2) th/mm3 WBC Differential . Differential Comment Auto diff final PT 10.2 (9.8-11.6) sec INR 1.0 Ratio APTT 26.6 (24.3-30.1) sec Sodium 143 (136-145) meq/L Potassium 4.2 (3.5-5.1) meq/L Chloride 113 H (98-107) meq/L Carbon Dioxide 19.3 L (21.0-32.0) meq/L Anion Gap 11 (5-15) meq/L BUN 42 H (7-18) mg/dL Creatinine 1.67 H (0.50-1.00) mg/dL Estimated GFR 37 L (>89) mL/min Random Glucose 100 (74-106) mg/dL Calcium 8.9 (8.5-10.1) mg/dL Magnesium 1.8 (1.5-2.5) mg/dL Total Bilirubin 0.3 (0.2-1.0) mg/dL AST 20 (15-37) U/L ALT 17 (10-53) U/L Alkaline Phosphatase 103 (45-117) U/L Troponin I 0.03 (0.02-0.05) ng/mL B-Natriuretic Peptide (0-100) pg/mL Total Protein 7.1 (6.4-8.2) g/dL Albumin 3.0 L (3.4-5.0) g/dL Urine Color (Yellw/Straw) Urine Clarity (Clear) Urine pH (5.0-8.5) Ur Specific [place] (1.002-1.035) Urine Protein (Neg-Trace) mg/dL Urine Glucose (UA) (Negative) mg/dL Urine Ketones (Negative) mg/dL Urine Occult Blood (Negative) Urine Nitrate (Negative) Urine Bilirubin (Negative) Urine Urobilinogen (Less than 2) mg/dL Ur Leukocyte Esterase (Negative) Urine RBC (0-3) /hpf Urine WBC (0-5) /hpf Ur Squamous Epith Cells (0-5) /hpf Urine Mucus (Occasional) /lpf Micro UA Comment Ur Microscopic Review Urine Culture Comments 11/26/17 11/26/17 11/27/17 Range/Units 16:55 16:58 05:02 WBC 6.2 (4.0-11.0) th/mm3 RBC 3.75 L (4.00-5.30) mil/mm3 Hgb 12.5 (11.6-15.3) gm/dL Hct 38.0 (35.0-46.0) % MCV 101.4 H (80.0-100.0) fL MCH 33.3 (27.0-34.0) pg MCHC 32.8 (32.0-36.0) % RDW 15.8 (11.6-17.2) % Plt Count 187 (150-450) th/mm3 MPV 9.5 (7.0-11.0) fL Neut % (Auto) 49.1 (16.0-70.0) % Lymph % (Auto) 38.7 (9.0-44.0) % Hitchcock % (Auto) 9.9 H (0.0-8.0) % Eos % (Auto) 1.3 (0.0-4.0) % Baso % (Auto) 1.0 (0.0-2.0) % Neut # (Auto) 3.0 (1.8-7.7) th/mm3 Lymph # (Auto) 2.4 (1.0-4.8) th/mm3 Hitchcock # (Auto) 0.6 (0.0-0.9) th/mm3 Eos # (Auto) 0.1 (0.0-0.4) th/mm3 Baso # (Auto) 0.1 (0.0-0.2) th/mm3 WBC Differential . Differential Comment Auto diff final PT (9.8-11.6) sec INR Ratio APTT (24.3-30.1) sec Sodium (136-145) meq/L Potassium (3.5-5.1) meq/L Chloride (98-107) meq/L Carbon Dioxide (21.0-32.0) meq/L Anion Gap (5-15) meq/L BUN (7-18) mg/dL Creatinine (0.50-1.00) mg/dL Estimated GFR (>89) mL/min Random Glucose (74-106) mg/dL Calcium (8.5-10.1) mg/dL Magnesium (1.5-2.5) mg/dL Total Bilirubin (0.2-1.0) mg/dL AST (15-37) U/L ALT (10-53) U/L Alkaline Phosphatase (45-117) U/L Troponin I (0.02-0.05) ng/mL B-Natriuretic Peptide 842 H (0-100) pg/mL Total Protein (6.4-8.2) g/dL Albumin (3.4-5.0) g/dL Urine Color Yellow (Yellw/Straw) Urine Clarity Hazy H (Clear) Urine pH 5.0 (5.0-8.5) Ur Specific [place] 1.014 (1.002-1.035) Urine Protein 500 or greater (Neg-Trace) mg/dL Urine Glucose (UA) Negative (Negative) mg/dL Urine Ketones Negative (Negative) mg/dL Urine Occult Blood Negative (Negative) Urine Nitrate Negative (Negative) Urine Bilirubin Negative (Negative) Urine Urobilinogen Less than 2 (Less than 2) mg/dL Ur Leukocyte Esterase Negative (Negative) Urine RBC 1 (0-3) /hpf Urine WBC 2 (0-5) /hpf Ur Squamous Epith Cells 2 (0-5) /hpf Urine Mucus Few H (Occasional) /lpf Micro UA Comment Culture not ind Ur Microscopic Review Not Reportable Urine Culture Comments Culture not ind 11/27/17 Range/Units 05:02 WBC (4.0-11.0) th/mm3 RBC (4.00-5.30) mil/mm3 Hgb (11.6-15.3) gm/dL Hct (35.0-46.0) % MCV (80.0-100.0) fL MCH (27.0-34.0) pg MCHC (32.0-36.0) % RDW (11.6-17.2) % Plt Count (150-450) th/mm3 MPV (7.0-11.0) fL Neut % (Auto) (16.0-70.0) % Lymph % (Auto) (9.0-44.0) % [place] % (Auto) (0.0-8.0) % Eos % (Auto) (0.0-4.0) % Baso % (Auto) (0.0-2.0) % Neut # (Auto) (1.8-7.7) th/mm3 Lymph # (Auto) (1.0-4.8) th/mm3 [place] # (Auto) (0.0-0.9) th/mm3 Eos # (Auto) (0.0-0.4) th/mm3 Baso # (Auto) (0.0-0.2) th/mm3 WBC Differential Differential Comment PT (9.8-11.6) sec INR Ratio APTT (24.3-30.1) sec Sodium 141 (136-145) meq/L Potassium 4.3 (3.5-5.1) meq/L Chloride 110 H (98-107) meq/L Carbon Dioxide 21.1 (21.0-32.0) meq/L Anion Gap 10 (5-15) meq/L BUN 39 H (7-18) mg/dL Creatinine 1.45 H (0.50-1.00) mg/dL Estimated GFR 44 L (>89) mL/min Random Glucose 108 H (74-106) mg/dL Calcium 8.9 (8.5-10.1) mg/dL Magnesium (1.5-2.5) mg/dL Total Bilirubin (0.2-1.0) mg/dL AST (15-37) U/L ALT (10-53) U/L Alkaline Phosphatase (45-117) U/L Troponin I (0.02-0.05) ng/mL B-Natriuretic Peptide (0-100) pg/mL Total Protein (6.4-8.2) g/dL Albumin (3.4-5.0) g/dL Urine Color (Yellw/Straw) Urine Clarity (Clear) Urine pH (5.0-8.5) Ur Specific [place] (1.002-1.035) Urine Protein (Neg-Trace) mg/dL Urine Glucose (UA) (Negative) mg/dL Urine Ketones (Negative) mg/dL Urine Occult Blood (Negative) Urine Nitrate (Negative) Urine Bilirubin (Negative) Urine Urobilinogen (Less than 2) mg/dL Ur Leukocyte Esterase (Negative) Urine RBC (0-3) /hpf Urine WBC (0-5) /hpf Ur Squamous Epith Cells (0-5) /hpf Urine Mucus (Occasional) /lpf Micro UA Comment Ur Microscopic Review Urine Culture Comments Imaging Data Radiologist's impression: Chest X-Ray 11/26/17 15:20 CONCLUSION: Minimal linear atelectasis in the lateral left midlung. Discharge Plan Discharge Disposition Patient Disposition: 30 Still Patient Discharge Condition Condition: Stable Discharge Order Discharge Orders: Discharge Order (Routine); Ordered 11/27/17 Ordered By: Kathi Oro Discharge Details Anticipated Discharge Date: 11/27/17 Diagnosis: CHF exacerbation Physicians Team ED Provider: Nii Jauregui ED Midlevel Provider: Magdalena Panchal Primary Care Provider: Opal Kirkland Attending Provider: Pardeep Neville Other Providers: [employer] Status ED Status: Left Department Discharge Information Discharge Date/Time: 11/26/17 23:21
--- NOTE | 2017-11-26 16:03 | XR ---
EXAM DATE: 11/26/2017 3:51 PM EDT AGE/SEX: 67 years / Female INDICATIONS: Short of breath. CLINICAL DATA: This is the patient's initial encounter. Patient reports that signs and symptoms have been present for 2 days and indicates a pain score of 2/10. MEDICAL/SURGICAL HISTORY: Congestive heart failure. Diabetes. Sarcoidosis. None. [place] [facility] [place]. . FINDINGS: A single AP view of the chest demonstrates the lungs to be symmetrically aerated without evidence of mass, focal consolidation, or effusion. Improved aeration of the lung bases. Mild linear atelectasis in the lateral left midlung. The cardiomediastinal contours are stable. Osseous structures are inta ct. CONCLUSION: Minimal linear atelectasis in the lateral left midlung. Electronically signed by: Vangie Mustafa MD 11/26/2017 4:02 PM EDT
[2017-11-26 17:15] LABS: Baso % (Auto) 0.8 % (0.0-2.0); Eos # (Auto) 0.1 th/mm3 (0.0-0.4); Eos % (Auto) 2.3 % (0.0-4.0); Hematocrit 39.8 % (35.0-46.0); Lymph # (Auto) 2.4 th/mm3 (1.0-4.8); Lymph % (Auto) 46.4 % (9.0-44.0); Mean Corpuscular HGB Conc 32.6 % (32.0-36.0); Mean Corpuscular Hemoglobin 33.8 pg (27.0-34.0); Mean Corpuscular Volume 103.6 fL (80.0-100.0); Mean Platelet Volume 9.8 fL (7.0-11.0); Mono # (Auto) 0.7 th/mm3 (0.0-0.9); Neut % (Auto) 37.5 % (16.0-70.0); Platelet Count 189 th/mm3 (150-450); Red Blood Count 3.84 mil/mm3 (4.00-5.30); Red Cell Distribution Width 16.5 % (11.6-17.2); White Blood Count 5.2 th/mm3 (4.0-11.0)
[2017-11-26 17:24] LABS: Bilirubin,Urine Negative (Negative); Clarity,Urine Hazy (Clear); Color,Urine Yellow (Yellw/Straw); Glucose,Urine (UA) Negative (Negative); Leukocyte Esterase,Urine Negative (Negative); Mucus,Urine Few /lpf (Occasional); Nitrite,Urine Negative (Negative); Specific Gravity,Urine 1.014 (1.002-1.035); Squamous Epithelial Cell,Urine 2 /hpf (0-5)
[2017-11-26 17:25] LABS: Activated Partial Thrombo Time 26.6 sec (24.3-30.1); Prothrombin Time 10.2 sec (9.8-11.6)
[2017-11-26 17:33] LABS: Alanine Aminotransferase 17 U/L (10-53)
[2017-11-26 17:37] LABS: Alkaline Phosphatase 103 U/L (45-117); Total Protein 7.1 g/dL (6.4-8.2); Troponin I 0.03 ng/mL (0.02-0.05)
[2017-11-26 17:39] LABS: Anion Gap 11 meq/L (5-15); Aspartate Aminotransferase 20 U/L (15-37); Blood Urea Nitrogen 42 mg/dL (7-18); Calcium 8.9 mg/dL (8.5-10.1); Carbon Dioxide 19.3 meq/L (21.0-32.0); Chloride 113 meq/L (98-107); Glomerular Filtration Rate 37 mL/min (>89); Glucose,Random 100 mg/dL (74-106); Magnesium 1.8 mg/dL (1.5-2.5); Potassium 4.2 meq/L (3.5-5.1); Sodium 143 meq/L (136-145)
[2017-11-26] MEDS ORDERED: Acetaminophen 325 MG Tablet PO PRN (20:59)
[2017-11-26] MEDS ORDERED: Bisacodyl 10 MG Supp RECTAL PRN (20:59)
[2017-11-26] MEDS ORDERED: Prochlorperazine 25 MG Supp RECTAL PRN (20:59)
[2017-11-26] MEDS ORDERED: Non-Formulary Drug (Bumetanide [Bumetanide] 2 MG) PO SCH (21:15)
--- NOTE | 2017-11-26 21:34 | P.HP ---
History of Present Illness Service: [facility] Primary Care Physician: Opal Kirkland MD History of Present Illness: 65-year-old female with diabetes mellitus, hypertension, CHF and sarcoidosis presents to the emergency department for evaluation of a 2 day history of shortness of breath. The patient denies cough. States she has an associated fever that was greater than 100 although she cannot tell me how high it was. She denies any lower extremity edema. She reports compliance with her medications until today when she did not take any. The patient was seen by her primary care provider, Dr. Kirkland, who sent her to the emergency department for a chest x-ray. Her laborer hoisting is Dr. Gil. She denies any chest pain. No abdominal pain. No nausea/vomiting/diarrhea. No lateralizing signs/ symptoms. Review of Systems All other systems reviewed negative except as stated in HPI [facility] - History History Provided By: Patient, Family Member - Medical History Medical History: Medical History (Last Updated 11/26/17 @ 21:28 by Lili Madrigal MD) History of hysterectomy Hypertension Normal cardiac stress test CHF (congestive heart failure) Diabetes mellitus Sarcoidosis - Surgical History Surgical History: Surgical History (Last Updated 11/26/17 @ 21:28 by Lili Madrigal MD) H/O breast biopsy History of hip replacement Hx of cholecystectomy Hx of tonsillectomy - Family History Family History: Family History (Last Updated 11/26/17 @ 21:28 by Lili Madrigal MD) Other Coronary artery disease - Tobacco History Smoking Status: Never smoker - Alcohol History How Often Do You Have a Drink Containing Alcohol: Never - Substance Use History Substance History: No History of Abuse - Travel History Recent Travel in the [place] Within the Last 8 Weeks: No Recent Travel Out of the Country Within the Last 8 Weeks: No - Immunization History Tetanus Immunization: <5 Years Hx Influenza Vaccine This Season: Yes Medications and Allergies Active Medications: Active Medications Acetaminophen (Tylenol) 650 mg PO Q4H PRN PRN Reason: Temp > 100.4 Hydrocodone Bitart/Acetaminophen ([place] 10/325) 1 tab PO Q6H PRN PRN Reason: pain > 4 Allopurinol (Zyloprim) 300 mg PO DAILY KB Atenolol (Tenormin) 50 mg PO DAILY KB Bethanechol Chloride (Urecholine) 25 mg PO TID KB Bisacodyl (Dulcolax Supp) 10 mg RECTAL DAILY PRN PRN Reason: SEVERE CONSITIPATION Duloxetine HCl (Cymbalta) 30 mg PO DAILY [facility] Folic Acid (Folic Acid) 1 mg PO DAILY KB Glipizide (Glucotrol) 5 mg PO BID [facility] Heparin Sodium (Porcine) (Heparin Inj) 5,000 units SQ Q8H [facility] Losartan Potassium (Cozaar) 50 mg PO DAILY [facility] Nifedipine (Procardia Xl) 90 mg PO DAILY [facility] Non-Formulary Medication (Bumetanide [Bumetanide]) 2 mg PO DAILY [facility] Non-Formulary Medication (Omeprazole [Omeprazole]) 20 mg PO DAILY [facility] Potassium Chloride (Klor-Con 10) 10 meq PO BID [facility] Prochlorperazine (Compazine Supp) 25 mg RECTAL Q12HR PRN PRN Reason: NAUSEA OR VOMITING Sennosides (Senokot) 17.2 mg PO Q12H PRN PRN Reason: Moderate Constipation Sodium Bicarbonate (Sodium Bicarbonate) 650 mg PO BID [facility] Tizanidine HCl (Zanaflex) 4 mg PO TID PRN PRN Reason: MUSCLE SPASM Allergies Allergy/AdvReac Type Severity Reaction Status Date / Time aspirin Allergy Severe "FAST Unverified 05/12/17 14:22 HEART BEAT" codeine Allergy Severe SWELLING Unverified 05/12/17 14:22 penicillin G Allergy Severe SWELLING Unverified 05/12/17 14:22 Sulfa (Sulfonamide Allergy Severe SWELLING Unverified 05/12/17 14:22 Antibiotics) Home Medications Medication Instructions Recorded Confirmed Type allopurinol 300 mg PO DAILY 11/26/17 11/26/17 History atenolol 50 mg PO DAILY 11/26/17 11/26/17 History bethanechol chloride 25 mg PO TID 11/26/17 11/26/17 History bumetanide 2 mg PO DAILY 11/26/17 11/26/17 History duloxetine [Cymbalta] 30 mg PO DAILY 11/26/17 11/26/17 History folic acid 1 mg PO DAILY 11/26/17 11/26/17 History glipizide 5 mg PO BID 11/26/17 11/26/17 History hydrocodone-acetaminophen [[place]] 1 tab PO QID 11/26/17 11/26/17 History losartan 50 mg PO DAILY 11/26/17 11/26/17 History nifedipine 90 mg PO DAILY 11/26/17 11/26/17 History omeprazole 20 mg PO DAILY 11/26/17 11/26/17 History potassium chloride 10 meq PO BID 11/26/17 11/26/17 History sodium bicarbonate 650 mg PO BID 11/26/17 11/26/17 History tizanidine 4 mg PO TID 11/26/17 11/26/17 History Exam Vital signs: Vital Signs 11/26/17 10:55 11/26/17 15:29 11/26/17 16:35 Temperature 97.7 F Pulse Rate 96 H 90 Respiratory Rate 24 18 Blood Pressure 130/86 Pulse Oximetry 97 94 L 11/26/17 16:58 11/26/17 21:21 Temperature Pulse Rate 104 H 94 H Respiratory Rate 20 18 Blood Pressure 161/94 H Pulse Oximetry 95 Intake & Output 11/26/17 11/26/17 11/27/17 06:59 18:59 06:59 Weight 98.43 kg Narrative: Gen.: No acute distress Head: Normocephalic. Atraumatic. EENT: Pupils equal round and reactive to light. Nose without drainage. Airway intact. Throat without injection. Cardiovascular: Regular rate and rhythm. No murmurs, rubs or gallops. Respiratory: Lungs clear to auscultation bilaterally. No wheezes or rhonchi. Abdomen: Soft, nontender, nondistended. No peritoneal signs. Musculoskeletal: No gross deformities. No edema. Skin: No obvious rashes or erythema. Neuro: Sensory and motor grossly intact. Cranial nerves II through XII grossly intact. Results - Labs CBC & Chem 7: 11/26/17 16:55 11/26/17 16:55 Labs: Laboratory Results - last 24 hr 11/26/17 11/26/17 11/26/17 16:55 16:55 16:55 WBC 5.2 RBC 3.84 L Hgb 13.0 Hct 39.8 MCV 103.6 H MCH 33.8 MCHC 32.6 RDW 16.5 Plt Count 189 MPV 9.8 Neut % (Auto) 37.5 Lymph % (Auto) 46.4 H [place] % (Auto) 13.0 H Eos % (Auto) 2.3 Baso % (Auto) 0.8 Neut # (Auto) 2.0 Lymph # (Auto) 2.4 [place] # (Auto) 0.7 Eos # (Auto) 0.1 Baso # (Auto) 0.0 WBC Differential . Differential Comment Auto diff final PT 10.2 INR 1.0 APTT 26.6 Sodium 143 Potassium 4.2 Chloride 113 H Carbon Dioxide 19.3 L Anion Gap 11 BUN 42 H Creatinine 1.67 H Estimated GFR 37 L Random Glucose 100 Calcium 8.9 Magnesium 1.8 Total Bilirubin 0.3 AST 20 ALT 17 Alkaline Phosphatase 103 Troponin I 0.03 B-Natriuretic Peptide Total Protein 7.1 Albumin 3.0 L Urine Color Urine Clarity Urine pH Ur Specific [place] Urine Protein Urine Glucose (UA) Urine Ketones Urine Occult Blood Urine Nitrate Urine Bilirubin Urine Urobilinogen Ur Leukocyte Esterase Urine RBC Urine WBC Ur Squamous Epith Cells Urine Mucus Micro UA Comment Ur Microscopic Review Urine Culture Comments 11/26/17 11/26/17 16:55 16:58 WBC RBC Hgb Hct MCV MCH MCHC RDW Plt Count MPV Neut % (Auto) Lymph % (Auto) [place] % (Auto) Eos % (Auto) Baso % (Auto) Neut # (Auto) Lymph # (Auto) [place] # (Auto) Eos # (Auto) Baso # (Auto) WBC Differential Differential Comment PT INR APTT Sodium Potassium Chloride Carbon Dioxide Anion Gap BUN Creatinine Estimated GFR Random Glucose Calcium Magnesium Total Bilirubin AST ALT Alkaline Phosphatase Troponin I B-Natriuretic Peptide 842 H Total Protein Albumin Urine Color Yellow Urine Clarity Hazy H Urine pH 5.0 Ur Specific [place] 1.014 Urine Protein 500 or greater Urine Glucose (UA) Negative Urine Ketones Negative Urine Occult Blood Negative Urine Nitrate Negative Urine Bilirubin Negative Urine Urobilinogen Less than 2 Ur Leukocyte Esterase Negative Urine RBC 1 Urine WBC 2 Ur Squamous Epith Cells 2 Urine Mucus Few H Micro UA Comment Culture not ind Ur Microscopic Review Not Reportable Urine Culture Comments Culture not ind - Imaging Impressions Chest X-Ray 11/26/17 15:20 CONCLUSION: Minimal linear atelectasis in the lateral left midlung. Caprini VTE Risk Assessment Caprini VTE Risk Assessment: Moderate/High Risk (score >= 2) Caprini Risk Assessment Model: Point Value = 1 Point Value = 2 Point Value = 3 Point Value = 5 Age 41-60 Minor surgery BMI > 25 kg/m2 Swollen legs Varicose veins or History of unexplained or recurrent spontaneous Oral contraceptives or hormone replacement Sepsis (< 1 month) Serious lung disease, including pneumonia (< 1 month) Abnormal pulmonary function Acute myocardial infarction Congestive heart failure (< 1 month) History of inflammatory bowel disease Medical patient at bed rest Age 61-74 Arthroscopic surgery Major open surgery (> 45 min) Laparoscopic surgery (> 45 min) Malignancy Confined to bed (> 72 hours) Immobilizing plaster cast Central venous access Age >= 75 History of VTE Family history of VTE Factor V Leiden Prothrombin [id number] Lupus anticoagulant Anticardiolipin antibodies Elevated serum homocysteine Heparin-induced thrombocytopenia Other congenital or acquired thrombophilia Stroke (< 1 month) Elective arthroplasty Hip, pelvis, or leg fracture Acute spinal cord injury (< 1 month) Prophylaxis Regimen: Total Risk Factor Score Risk Level Prophylaxis Regimen 0-1 Low Early ambulation 2 Moderate Order ONE of the following: *Sequential Compression Device (SCD) *Heparin 5000 units SQ BID 3-4 Higher Order ONE of the following medications: *Heparin 5000 units SQ TID *Enoxaparin/Lovenox 40 mg SQ daily (WT < 150 kg, CrCl > 30 mL/min) *Enoxaparin/Lovenox 30 mg SQ daily (WT < 150 kg, CrCl > 10-29 mL/min) *Enoxaparin/Lovenox 30 mg SQ BID (WT < 150 kg, CrCl > 30 mL/min) AND/OR *Sequential Compression Device (SCD) 5 or more Highest Order ONE of the following medications: *Heparin 5000 units SQ TID (Preferred with Epidurals) *Enoxaparin/Lovenox 40 mg SQ daily (WT < 150 kg, CrCl > 30 mL/min) *Enoxaparin/Lovenox 30 mg SQ daily (WT < 150 kg, CrCl > 10-29 mL/min) *Enoxaparin/Lovenox 30 mg SQ BID (WT < 150 kg, CrCl > 30 mL/min) AND *Sequential Compression Device (SCD) Assessment and Plan - Plan Assessment/plan: 1. Shortness of breath/? CHF exacerbation Chest x-ray negative for infiltrate or pulmonary BNP 892 although patient with no edema or crackles Continue home medications Not currently requiring oxygen Monitor, anticipate discharge in the a.m. 2. Diabetes mellitus Continue home glipizide SSI Monitor BG 3. Hypertension Continue home medications 4. Chronic pain Continue home [place] 5. Chronic kidney disease Creatinine 1.67, baseline Monitor renal function FEN Diabetic diet Electrolytes: Monitor and replete as needed Heparin
[2017-11-26] MEDS: Heparin - SQ 10,000 UNITS/ML Vial SQ SCH (22:13)
[2017-11-27 05:45] LABS: Baso # (Auto) 0.1 th/mm3 (0.0-0.2); Eos # (Auto) 0.1 th/mm3 (0.0-0.4); Eos % (Auto) 1.3 % (0.0-4.0); Hemoglobin 12.5 gm/dL (11.6-15.3); Lymph # (Auto) 2.4 th/mm3 (1.0-4.8); Lymph % (Auto) 38.7 % (9.0-44.0); Mean Corpuscular HGB Conc 32.8 % (32.0-36.0); Mean Corpuscular Hemoglobin 33.3 pg (27.0-34.0); Mean Corpuscular Volume 101.4 fL (80.0-100.0); Mean Platelet Volume 9.5 fL (7.0-11.0); Mono # (Auto) 0.6 th/mm3 (0.0-0.9); Mono % (Auto) 9.9 % (0.0-8.0); Neut % (Auto) 49.1 % (16.0-70.0); Platelet Count 187 th/mm3 (150-450); Red Blood Count 3.75 mil/mm3 (4.00-5.30); Red Cell Distribution Width 15.8 % (11.6-17.2); White Blood Count 6.2 th/mm3 (4.0-11.0)
[2017-11-27 06:07] LABS: Calcium 8.9 mg/dL (8.5-10.1); Carbon Dioxide 21.1 meq/L (21.0-32.0); Potassium 4.3 meq/L (3.5-5.1)
[2017-11-27] MEDS: Heparin - SQ 10,000 UNITS/ML Vial SQ SCH (06:13)
[2017-11-27 08:25] VITALS: BP 121/69; PULSE 98; RESP 20; TEMP 98.1; O2SAT 100
--- NOTE | 2017-11-27 08:45 | P.PN ---
Subjective Interval history: Follow-up for CHF exacerbation, shortness of breath. Patient reports feeling much better today. She states she feels mostly back to her baseline. She states she is able to take a deep breath today, and was unable to do that yesterday. She has been ambulating to the restroom without any difficulty. Denies any lower extremity swelling. Denies any orthopnea. Denies any cough or fever/chills. She wants to go home. She states she has all of her medications at home including her Bumex. Discussed CHF restrictions such as low -sodium diet, fluid restrictions, and monitoring daily weights; patient verbalized understanding. Physical Exam Vital signs: Vital Signs 11/26/17 10:55 11/26/17 15:29 11/26/17 16:35 Temperature 97.7 F Pulse Rate 96 H 90 Respiratory Rate 24 18 Blood Pressure 130/86 Pulse Oximetry 97 94 L 11/26/17 16:58 11/26/17 21:21 11/26/17 23:54 Temperature Pulse Rate 104 H 94 H Respiratory Rate 20 18 18 Blood Pressure 161/94 H Pulse Oximetry 95 11/27/17 00:00 11/27/17 00:33 11/27/17 04:00 Temperature 99.4 F 98.6 F Pulse Rate 112 H 100 H Respiratory Rate 21 19 Blood Pressure 138/84 113/66 Pulse Oximetry 92 L 98 93 L 11/27/17 07:54 11/27/17 08:24 Temperature 98.1 F Pulse Rate 98 H Respiratory Rate 20 Blood Pressure 121/69 Pulse Oximetry 99 100 Intake & Output 11/26/17 11/27/17 11/27/17 18:59 06:59 18:59 Intake Total 220 / 220 Balance 220 / 220 Weight 98.43 kg 98.43 kg Intake: Oral 220 / 220 Other: # Voids 1 Weight On Admission 98.43 kg Narrative: GENERAL: Well-nourished, well-developed pleasant female patient in [facility]. SKIN: Warm and dry. No rash. HEENT: Normocephalic. Atraumatic. Pupils equal and round. Mucous membranes pink and moist. CARDIOVASCULAR: Regular rate and rhythm. No murmur appreciated. RESPIRATORY: No accessory muscle use. Clear to auscultation. Breath sounds equal bilaterally. GASTROINTESTINAL: Abdomen soft, non-tender, nondistended. Normoactive bowel sounds x4. MUSCULOSKELETAL: No obvious deformities. Extremities without clubbing, cyanosis , or edema. NEUROLOGICAL: Awake and alert. No obvious cranial nerve deficits. Motor grossly within normal limits. Moving all extremities spontaneously. Normal speech. PSYCHIATRIC: Appropriate mood and affect; insight and judgment normal. Results - Labs CBC & Chem 7: 11/27/17 05:02 11/27/17 05:02 Laboratory Results - last 24 hr 11/26/17 11/26/17 11/26/17 16:55 16:55 16:55 WBC 5.2 RBC 3.84 L Hgb 13.0 Hct 39.8 MCV 103.6 H MCH 33.8 MCHC 32.6 RDW 16.5 Plt Count 189 MPV 9.8 Neut % (Auto) 37.5 Lymph % (Auto) 46.4 H [place] % (Auto) 13.0 H Eos % (Auto) 2.3 Baso % (Auto) 0.8 Neut # (Auto) 2.0 Lymph # (Auto) 2.4 [place] # (Auto) 0.7 Eos # (Auto) 0.1 Baso # (Auto) 0.0 WBC Differential . Differential Comment Auto diff final PT 10.2 INR 1.0 APTT 26.6 Sodium 143 Potassium 4.2 Chloride 113 H Carbon Dioxide 19.3 L Anion Gap 11 BUN 42 H Creatinine 1.67 H Estimated GFR 37 L Random Glucose 100 Calcium 8.9 Magnesium 1.8 Total Bilirubin 0.3 AST 20 ALT 17 Alkaline Phosphatase 103 Troponin I 0.03 B-Natriuretic Peptide Total Protein 7.1 Albumin 3.0 L Urine Color Urine Clarity Urine pH Ur Specific [place] Urine Protein Urine Glucose (UA) Urine Ketones Urine Occult Blood Urine Nitrate Urine Bilirubin Urine Urobilinogen Ur Leukocyte Esterase Urine RBC Urine WBC Ur Squamous Epith Cells Urine Mucus Micro UA Comment Ur Microscopic Review Urine Culture Comments 11/26/17 11/26/17 11/27/17 16:55 16:58 05:02 WBC 6.2 RBC 3.75 L Hgb 12.5 Hct 38.0 MCV 101.4 H MCH 33.3 MCHC 32.8 RDW 15.8 Plt Count 187 MPV 9.5 Neut % (Auto) 49.1 Lymph % (Auto) 38.7 [place] % (Auto) 9.9 H Eos % (Auto) 1.3 Baso % (Auto) 1.0 Neut # (Auto) 3.0 Lymph # (Auto) 2.4 [place] # (Auto) 0.6 Eos # (Auto) 0.1 Baso # (Auto) 0.1 WBC Differential . Differential Comment Auto diff final PT INR APTT Sodium Potassium Chloride Carbon Dioxide Anion Gap BUN Creatinine Estimated GFR Random Glucose Calcium Magnesium Total Bilirubin AST ALT Alkaline Phosphatase Troponin I B-Natriuretic Peptide 842 H Total Protein Albumin Urine Color Yellow Urine Clarity Hazy H Urine pH 5.0 Ur Specific [place] 1.014 Urine Protein 500 or greater Urine Glucose (UA) Negative Urine Ketones Negative Urine Occult Blood Negative Urine Nitrate Negative Urine Bilirubin Negative Urine Urobilinogen Less than 2 Ur Leukocyte Esterase Negative Urine RBC 1 Urine WBC 2 Ur Squamous Epith Cells 2 Urine Mucus Few H Micro UA Comment Culture not ind Ur Microscopic Review Not Reportable Urine Culture Comments Culture not ind 11/27/17 05:02 WBC RBC Hgb Hct MCV MCH MCHC RDW Plt Count MPV Neut % (Auto) Lymph % (Auto) [place] % (Auto) Eos % (Auto) Baso % (Auto) Neut # (Auto) Lymph # (Auto) [place] # (Auto) Eos # (Auto) Baso # (Auto) WBC Differential Differential Comment PT INR APTT Sodium 141 Potassium 4.3 Chloride 110 H Carbon Dioxide 21.1 Anion Gap 10 BUN 39 H Creatinine 1.45 H Estimated GFR 44 L Random Glucose 108 H Calcium 8.9 Magnesium Total Bilirubin AST ALT Alkaline Phosphatase Troponin I B-Natriuretic Peptide Total Protein Albumin Urine Color Urine Clarity Urine pH Ur Specific [place] Urine Protein Urine Glucose (UA) Urine Ketones Urine Occult Blood Urine Nitrate Urine Bilirubin Urine Urobilinogen Ur Leukocyte Esterase Urine RBC Urine WBC Ur Squamous Epith Cells Urine Mucus Micro UA Comment Ur Microscopic Review Urine Culture Comments - Imaging Impressions Chest X-Ray 11/26/17 15:20 CONCLUSION: Minimal linear atelectasis in the lateral left midlung. Assessment and Plan - Plan 65-year-old female with diabetes mellitus, hypertension, CHF and sarcoidosis presents to the emergency department for evaluation of a 2 day history of shortness of breath. Mild Acute CHF Exacerbation: reportedly nonischemic cardiomyopathy, although no echo on file, patient follows as outpatient with cardiology Dr. Gil. -Chest x-ray negative for infiltrate or pulmonary -BNP 892 although patient with no edema or crackles -Given IV Lasix x1, and continued patient's Bumex 2mg daily -Provided CHF education including sodium/fluid restrictions, monitoring daily weights, patient verbalized understanding -Patient stable on room air, symptoms much improved, stable for discharge, recommended outpatient f/up with Dr. Gil Diabetes mellitus -Continue home glipizide -SSI -Monitor BG Hypertension -Continue home medications -BP well controlled Chronic pain -Continue home [place] Chronic kidney disease -Creatinine 1.67, baseline -Monitor renal function, improved, Cr 1.45 DVT Prophylaxis: Heparin Discharge Planning: Discharge patient to home Condition on discharge: Stable Heart Healthy/Diabetic Diet as tolerated Ad Kaela activity Rx written: Follow-up with primary care physician Dr. Kirkland and cardiology Dr. Gil
[2017-11-27] MEDS ORDERED: glipiZIDE 5 MG Tablet PO SCH (09:00)
[2017-11-27] MEDS ORDERED: Pantoprazole Sodium 20 MG DR Tablet PO SCH (09:00)
[2017-11-27] MEDS ORDERED: Allopurinol 300 MG Tablet PO SCH (09:00)
[2017-11-27] MEDS ORDERED: Sodium Bicarbonate 650 MG Tablet PO SCH (09:00)
[2017-11-27] MEDS ORDERED: Atenolol 50 MG Tablet PO SCH (09:00)
[2017-11-27] MEDS ORDERED: Folic Acid 1 MG Tablet PO SCH (09:00)
--- NOTE | 2017-11-27 21:36 | ECG ---
Date Performed: 11/26/2017 Time Performed: 16:02:40 PTAGE: 67 years EKG: Sinus rhythm MINIMAL ST DEPRESSION BORDERLINE ECG PREVIOUS TRACING : 04/19/2017 11.08 Since the previous tracing, no significant change noted DOCTOR: Debora Temple Interpretating Date/Time 11/27/2017 21:34:42
== END 2017-11-27 10:21 | disposition home or self-care (01) ==
LOC: NEPD 10:43 → NEDA 10:43 → NEPFCDU 23:31
PROVIDERS: ADMIT Hospitalist; ATTEND Hospitalist